=== PATIENT | female | born 1995 | race Caucasian/White ===

== ENCOUNTER 2017-09-12 15:52 | Emergency (ER) | payer OTHER ==
[2017-09-12] MEDS: IBUPROFEN 600 MG TAB PO (16:10)
== END 2017-09-12 17:26 | disposition home or self-care (01) ==
LOC: FTE 15:52
DX: S52.611A Displaced fracture of right ulna styloid process, initial encounter for closed fracture (principal); S52.501A Unspecified fracture of the lower end of right radius, initial encounter for closed fracture; W18.39XA Other fall on same level, initial encounter; Y92.019 Unspecified place in single-family (private) house as the place of occurrence of the external cause
CPT/HCPCS: 29125; 73090-RT; 99283-25